=== PATIENT | male | born 1995 | race Caucasian/White ===

== ENCOUNTER 2022-06-05 17:11 | Emergency (ER) | payer OTHER, SELFPAY ==
--- NOTE | ~2022-06-05 | XR_ITS ---
EXAM: XR forearm LT 2V DATE: 06/05/2022 17:35 HISTORY: CAR FELL ON ARM TODAY. PAIN ANTERIOR MID FOREARM L . COMPARISON: None available. FINDINGS: Normal mineralization. No fracture or dislocation. No lytic or blastic lesion. Joint space s are maintained. No erosion or periosteal change. Mid forearm soft tissue swelling. IMPRESSION: No acute osseous finding in the left forearm. Reviewed, dictated and finalized at location K.
[2022-06-05 17:20] VITALS: BP 165/77; PULSE 95; RESP 16; TEMP 37.2; O2SAT 99
[2022-06-05] MEDS: TETANUS,DIPHTHERIA,AC PERTUSSIS ADULT (0.5 ML) BOOSTRIX IM (17:46)
--- NOTE | 2022-06-05 17:48 | ED.GENADULT ---
HPI - General Adult General Chief complaint: Extremity Injury, Upper Stated complaint: Left Arm Injury Source: patient Mode of arrival: ambulatory Limitations: no limitations History of Present Illness HPI narrative: Patient presents for evaluation of an injury to the left forearm. He states he was working on his car around 1630 when the car fell and bounced on his arm. He immediately noted swelling in the area. He now has bruising as well. He denies pain whatsoever. He has no paresthesias. He is right-hand dominant. He is not diabetic. Date of last tetanus unknown. No loss of range of motion. No other injuries. No additional complaints or concerns. Related Data Home Medications Medication Instructions Recorded Confirmed No Home Medications 06/05/22 06/05/22 Allergies Allergy/AdvReac Type Severity Reaction Status Date / Time No Known Allergies Allergy Unverified 02/12/19 01:14 Review of Systems Review of Systems: CONSTITUTIONAL: Denies fever, chills, or sweats. EYES: Denies visual changes, redness, or discharge. ENT: Denies rhinorrhea, congestion, sore throat, or otalgia. CARDIOVASCULAR: Denies chest pain, palpitations, or edema. RESPIRATORY: Denies cough or dyspnea. GASTROINTESTINAL: Denies abdominal pain, nausea, vomiting, or diarrhea. GENITOURINARY: Denies dysuria or hematuria. SKIN: Reports bruising to the left forearm MUSCULOSKELETAL: Reports swelling to left forearm. Denies back pain, joint pain, or myalgia. NEUROLOGIC: Denies headache, numbness, dizziness, or weakness. PSYCHIATRIC: Denies anxiety or depression. [facility] Past Medical History Medical History No pertinent past medical history Surgical History Surgical History No pertinent past surgical history Family History Family History Father Family history non-contributory Social History Social History Alcohol intake: never Living arrangements: alone Gender identity (if verbalized by the patient): Male Spiritual care concerns: No Exam Narrative: GENERAL: Well-appearing, well-nourished, and in no acute distress. HEAD: Normocephalic, atraumatic. EYES: PERRLA and EOMI. ENT: Nares clear, no rhinorrhea or epistaxis. Mucous membranes moist. Oropharynx without tonsillar hypertrophy exudate or other lesions. Bilateral TMs pearly calderon nonbulging NECK: Supple. No adenopathy or masses. No carotid bruits or JVD CHEST: Clear to auscultation. No respiratory distress. No wheezes rales or rhonchi HEART: Regular rate and rhythm. No murmur heard. Normal peripheral pulses. ABDOMEN: Soft, nontender, nondistended, normal active bowel sounds. EXTREMITIES: Approximately 10 x 7 cm area of soft tissue swelling to the left forearm. Normal range of motion of left elbow and wrist. 5 out of 5 handgrip strength bilaterally. No tenderness in the left forearm. SKIN: Approximately 4 x 5 cm area of ecchymosis to the left forearm warm, dry, no rash. NEURO: No focal deficits. Alert and oriented x3. PSYCH: Normal mood and affect. Course Course Emergency Course: This is a 26-year-old male who presented following a crush injury to the left forearm. Thankfully his arm was not trapped underneath the vehicle. He had some soft tissue swelling that seems consistent with a hematoma. There is no fracture on imaging. No evidence of compartment syndrome. Advised applying ice. Despite him not being in pain I offered him a prescription for medication for analgesic effect due to the nature of his injury. He declined. His sensation is intact as is full range of motion of all joints of the left upper extremity. He will take ibuprofen as needed for pain. He should follow-up outpatient for further evaluation and treatment go to the ER
== END 2022-06-05 18:06 | disposition home or self-care (01) ==
PROVIDERS: Emergency Provider Nurse Practitioner
DX: S50.12XA Contusion of left forearm, initial encounter (principal); W20.8XXA Other cause of strike by thrown, projected or falling object, initial encounter; Z23 Encounter for immunization
CPT/HCPCS: 73090; 90471; 90715; 99213; G0463